=== PATIENT | male | born 1955 | race Caucasian/White ===

== ENCOUNTER 2016-06-20 17:17 | Emergency (ER) | payer OTHER ==
--- NOTE | ~2016-06-20 | CR106 ---
[facility] A Service of [facility] & [facility] RADIOLOGY TEXT RESULTS PATIENT: TWIN BELTRE LOCATION: CFTX : 55 UNIT #: [id number] AGE: [address]: Whit Garcia APRN SEX: M ORDER DR: [id number] [facility] [address] [place], [place] [address] [id number] E MR#: [id number] Acc #: [id number] NAME: TWIN BELTRE : 1955 SEX: M STUDY DATE/TIME: 06/20/2016 17:22 UNIT: TX ROOM: STUDY DESCRIPTION: CR Femur 2 Views Lt Attending Physician: Whit Garcia A.P.R.N. Ordering Physician: Ed Doctor [id number] [facility] Primary Care Physician: Rafael Camara Jr., M.D. MEDICAL IMAGING REPORT This report is preliminary unless electronic signature is present EXAM Left femur series, 06/20/2016 HISTORY Fell out of bed today. Pain, bruises mid femur. Mid femur radiating up and down leg pain. FINDINGS AP and lateral views of the left femur are presented. Poor quality study. Clothing artifacts overlie relevant anatomy. Visualized bony pelvis intact. Teww-vm-ustwmzhf narrowing mid to inferior left hip joint. The left femur is intact without evidence of fracture. Mild narrowing medial left knee joint compartment. No indication of joint effusion. No traumatic appearing soft tissue abnormality. Dictated by... Rafael Barry M.D. THIS IS AN ELECTRONICALLY VERIFIED REPORT Rafael Barry M.D. at 06/21/2016 2:18 PM ELI/mario alberto TD: 06/21/2016 09:56 JOB #: [id number] MEDICAL IMAGING REPORT Page 1 of 1 COPY
--- NOTE | ~2016-06-20 | CR150 ---
[facility] A Service of [facility] & [facility] RADIOLOGY TEXT RESULTS PATIENT: TWIN BELTRE LOCATION: CFTX : 55 UNIT #: [id number] AGE: [address]: Whit Garcia APRN SEX: M ORDER DR: [id number] [facility] [address] [place], [place] [address] [id number] E MR#: [id number] Acc #: [id number] NAME: TWIN BELTRE : 1955 SEX: M STUDY DATE/TIME: 06/20/2016 17:21 UNIT: [facility] ROOM: STUDY DESCRIPTION: CR Hip Min 2 Views Lt Attending Physician: Whit Garcia A.P.R.N. Ordering Physician: Ed Mike Ha M.D. Primary Care Physician: Rafael Camara Jr., M.D. MEDICAL IMAGING REPORT This report is preliminary unless electronic signature is present EXAM Left hip series 06/20/2016 HISTORY Trauma today, fell out of bed. Pain, bruises mid femur. FINDINGS AP radiograph of pelvis presented with frog-leg view left hip. Bony ring of pelvis is intact. Kmju-ko-wahliyya narrowing of the lzz-re-bugrugbl hip joints bilaterally. The visualized proximal femurs are intact bilaterally with no evidence of fracture. The periarticular soft tissues are unremarkable. Visualized bowel gas pattern normal. Dictated by... Rafael Barry M.D. THIS IS AN ELECTRONICALLY VERIFIED REPORT Rafael Barry M.D. at 06/21/2016 2:18 PM ELI/mona TD: 06/21/2016 10:04 JOB #: [id number] MEDICAL IMAGING REPORT Page 1 of 1 COPY
[~2016-06-20 17:17] MED LIST: ALDACTONE25 MG PO; AMIODARONE HCL100 MG PO; ASPIRIN PO; ASPIRIN81 M2 PO; BENTYL10 MG PO; BUMEX1 MG PO; COUMADIN2.5 MG PO; DIGOX0.125 MG PO; IBUPROFEN PO; METOPROLOL TAR25 MG PO; MULTIVITAMIN1 UDCAP PO; NICOTINE PATCH1 EACH TD; NO MEDICATIONS; ZESTRIL5 MG PO
== END 2016-06-20 18:26 | disposition home or self-care (01) ==
LOC: CFTX 17:17
DX: S70.12XA Contusion of left thigh, initial encounter (principal); F17.210 Nicotine dependence, cigarettes, uncomplicated; W06.XXXA Fall from bed, initial encounter; Y92.009 Unspecified place in unspecified non-institutional (private) residence as the place of occurrence of the external cause; I11.0 Hypertensive heart disease with heart failure; I50.9 Heart failure, unspecified
CPT/HCPCS: 73502; 73552; 99284

== ENCOUNTER 2016-12-06 16:17 | Inpatient (IN) | payer OTHER ==
[~2016-12-06] VITALS: Ht 182.9 cm; Wt 67.4 kg
--- NOTE | ~2016-12-06 | DS ---
Unit #: [id number] #: [id number] Patient: JORJE HOLDER [id number] [address] [address] [id number] I MR#: [id number] NAME: JORJE HOLDER ROOM: 331 Age: 61 Sex: M Admission Date: 12/06/2016 : 1955 Discharge Date: 12/11/2016 Attending Physician: Malinda Luna M.D. Primary Care Physician: Lloyd Holder M.D. DISCHARGE SUMMARY FINAL DIAGNOSES 1. Acute systolic congestive heart failure with left ventricular ejection fraction of less than 10%. 2. Right ventricular function decreased. 3. Known supraventricular tachycardia. 4. Paroxysmal atrial fibrillation. 5. History of coronary artery disease with a history of coronary artery bypass grafting. 6. Alcoholic hepatitis. 7. Chronic obstructive pulmonary disease. 8. Possible pneumonia. 9. Hypokalemia, which is resolved. 10. Alcohol abuse. 11. Noncompliance. 12. Renal insufficiency. DISCHARGE MEDICATIONS Nebulizer treatment at home, prednisone tapering dose, Entresto one tablet b.i.d., mag oxide 400 mg b.i.d., Lopressor 25 mg b.i.d., furosemide 20 mg b.i.d., aspirin 81 mg daily, spironolactone 25 mg daily, folic acid 1 mg daily, thiamine 100 mg daily, Augmentin 875 mg b.i.d. for 3 days. DIAGNOSTIC STUDIES LABORATORY RESULTS: Upon discharge, BMP shows sodium 136, potassium 3.7, chloride 96, BUN 26, creatinine 1.3, GFR 58.9, and calcium 9.3. CBC shows WBC 6.2, hemoglobin 13.7, hematocrit 41.7, platelet count of 177. RPR is nonreactive. TSH 2.81 in normal range. Blood cultures x2, no growth. BNP on admission 3621. Lactic acid 1.9. IMAGING STUDIES: Chest x-ray which was most recent was done on 12/08/2016 showed no significant change from 12/06/2016, persistent left basilar consolidation with small left pleural effusion. CONSULTATION DURING HOSPITALIZATION 1. Dr. Shaw from Cardiology Services. 2. Admitting physician, Dr. Bubba Miller. 3. Discharging physician, Dr. Malinda Luna. HOSPITAL COURSE Mr. Jorje Holder is a 61-year-old male, who was admitted with shortness of breath, with cough and increasing lower extremity swelling. The patient was admitted by Dr. Miller. The patient was diagnosed with acute exacerbation of congestive heart failure and alcohol abuse and possible Unit #: [id number] #: [id number] Patient: JORJE HOLDER pneumonia. The patient has been receiving IV Zosyn from beginning of the stay. He would complete a course with Augmentin for 3 more days. The patient may need to repeat chest x-ray, PA and lateral, in 6 weeks. The patient's prednisone is being tapered and is going to be on a small dose of prednisone till off. Dr. Hilton was consulted for ischemic cardiomyopathy. The patient was on dobutamine in the hospital and IV diuresis. He is doing better at this time. The patient's medication has been adjusted as per key operator. The patient will need a LifeVest that is being arranged. The patient will follow up with key operator as an outpatient. The patient does have history of alcohol abuse. The patient was started on CIWA protocol and is doing well at this time. We will continue thiamine and folic acid. DISCHARGE PHYSICAL EXAMINATION VITAL SIGNS: Blood pressure is 116/97, heart rate is 70, respiratory rate is 18. CHEST: Fair air entry. Decreased at the bases. CVS: S1, S2 positive. Regular rhythm. ABDOMEN: Soft. EXTREMITIES: Edema is present, but it is improved. DISCHARGE INSTRUCTIONS 1. The patient will be discharged home in stable condition. 2. Follow up with primary care provider in 1 week. 3. Follow up with Dr. Shaw on 01/02/2017 at 1 p.m. 4. Congestive heart failure education. 5. Alcohol cessation counseling done. Dictated by... Regulo Ruff/maria guadalupe TD: 12/14/2016 16:16 JOB #: [id number] DISCHARGE SUMMARY Page 1 of 1 X Malinda Luna MD DISCHARGE SUMMARY
--- NOTE | ~2016-12-06 | HP ---
Unit #: [id number] #: [id number] Patient: TWIN HOLDER [id number] [facility]. [place], [place] [address] [id number] I MR#: [id number] NAME: TWIN HOLDER ROOM: 17069 Age: 61 Sex: M Admission Date: 12/06/2016 : 1955 Attending Physician: Malinda Luna M.D. Primary Care Physician: Lloyd Holder M.D. HISTORY AND PHYSICAL ADMISSION DIAGNOSES 1. Acute exacerbation of congestive heart failure. 2. Alcohol abuse. 3. History of coronary artery disease. 4. Chronic obstructive pulmonary disease. 5. Hypertension. 6. Continued tobacco use. HISTORY OF PRESENT ILLNESS Mr. Holder is a 61-year-old gentleman, patient of Dr. Holder, who comes to the emergency room with the complaints of increasing shortness of air and dyspnea, along with cough and increasing lower extremity swelling over the last several days. He denies any fever or chills and denies any chest pain, headache, dizziness, syncope, nausea, vomiting, diarrhea, or abdominal pain. He admits daily drinking with bourbon, and he continues to smoke and has been an active smoker all his adult life. So a 12-point review of systems on this patient basically is negative except as above. PAST MEDICAL HISTORY 1. Coronary artery disease. 2. COPD. 3. Atrial flutter. 4. Alcoholic hepatitis. 5. Acute renal failure. PAST SURGICAL HISTORY 1. CABG. 2. Back surgery. HOME MEDICATIONS I do not have in front of me, but these will be clarified with the pharmacy, and patient will be restarted accordingly. ALLERGIES No known drug allergies. SOCIAL HISTORY He is an active smoker and drinks on a daily basis, mainly bourbon. Denies any illicit drug use. FAMILY HISTORY Unremarkable. PHYSICAL EXAMINATION Unit #: [id number] #: [id number] Patient: TWIN HOLDER GENERAL: Patient is a 61-year-old gentleman in no acute distress. VITAL SIGNS: Blood pressure 144/113, heart rate 103, respirations 18, temperature 98.9. HEENT: Head is atraumatic. Pupils equal, round, and reactive to light and accommodation. Extraocular muscles intact. Oropharynx clear. NECK: Supple. No mass. No JVD. No bruits. CHEST: Diminished bilaterally with mild expiratory wheezing. CARDIOVASCULAR: S1 and S2. No murmurs. ABDOMEN: Soft, obese, and distended. Bowel sounds are diminished. LOWER EXTREMITIES: With 2 to 3+ pitting edema. NEUROLOGIC: Without any focal deficits. Alert, oriented, and answering questions appropriately. DIAGNOSTIC STUDIES LABORATORY: Chemistry significant for BNP of 3600, direct bilirubin 0.8, total bilirubin 2.3, indirect bilirubin 1.7, alkaline phosphatase 139, lactic acid 1.9. Coagulation panel: PT 15.6, INR 1.4. Set of cardiac enzymes negative. Hemoglobin unremarkable. ASSESSMENT AND PLAN 1. Acute exacerbation of congestive heart failure (1) on IV Lasix. Cardiology to see. Monitor closely on telemetry bed. 2. Alcohol abuse. Started on alcohol withdrawal protocol. Will start on folate, thiamine, and p.r.n. Ativan. Counseled on the importance of quitting alcohol habits. 3. Tobacco abuse. Again, counseled on the importance of quitting tobacco. 4. Chronic obstructive pulmonary disease, at baseline, stable. 5. History of coronary artery disease, status post coronary artery bypass grafting. Resume home medications. Cardiology to follow. 6. Hypertension. Continue home medications. 7. Gastrointestinal and deep venous thrombosis prophylaxis with proton pump inhibitor and Lovenox. 1. Dictated by Regulo Porter/wally TD: 12/06/2016 20:31 JOB #: [id number] HISTORY AND PHYSICAL Page 1 of 1 X Bubba Miller MD X HISTORY AND PHYSICAL
--- NOTE | ~2016-12-06 | EKG ---
PATIENT: TWIN BELTRE UNIT #: [id number] Ventricular Rate: 78 BPM Atrial Rate: 78 BPM P-R Interval: 166 ms QRS Duration: 112 ms Q-T Interval: 442 ms QTC Calculation(Bezet): 503 ms P Columbia: 13 degrees Calculated R Columbia: 47 degrees Calculated T Columbia: 36 degrees Diagnosis Line: Normal sinus rhythm Diagnosis Line: Possible Left atrial enlargement Diagnosis Line: Cannot rule out Anterior infarct , age Diagnosis Line: undetermined Diagnosis Line: Prolonged QT Diagnosis Line: Abnormal ECG Diagnosis Line: When compared with ECG of 06-DEC-2016 16:31, Diagnosis Line: (unconfirmed) Diagnosis Line: No significant change was found Diagnosis Line: Confirmed by TEO BIANCHI MD ([id number]) on 12/13/2016 Diagnosis Line: 7:34:35 AM INTERPRETING MD: ARIAS MALAGON
--- NOTE | ~2016-12-06 | CO ---
Unit #: [id number] #: [id number] Patient: TWIN BELTRE [id number] [facility]. [place], [place] [address] [id number] I MR#: [id number] NAME: TWIN BELTRE ROOM: 331 Age: 61 Sex: M Admission Date: 12/06/2016 : 1955 Attending Physician: Malinda Luna M.D. Primary Care Physician: Lloyd Holder M.D. Consultation Date: 12/07/2016 CONSULTATION REPORT REASON FOR CONSULTATION Management of his ischemic cardiomyopathy. HISTORY OF PRESENT ILLNESS This is a 61-year-old white male whom we had been seeing up to last year. He has ischemic cardiomyopathy. He has had a history of a CABG. A few years back, he had been coming to our office like as I mentioned was about a year ago. He was in atrial flutter last year and required DC cardioversion, which was successful. He had an EF at one time as low as 10% and his last ejection fraction was checked in 09/2015, it increased of 40% to 45%. He did at that time, also was wearing a LifeVest until he was scheduled for a defibrillator. Since that time, the patient's from pancreatic cancer, he has been very depressed, he increased his drinking. He admits to be drinking three pints in a week, but now it is reported he drinks a pint a day. He smokes about a pack of cigarettes a day. He has not had been taking hardly any of his medications except recently went to Dr. Holder and got 12.5 of metoprolol b.i.d. and spironolactone. He knew his congestive heart failure was worsening, he has increased lower extremity edema, increased shortness of breath. He is having some substernal chest tightness, but usually when he is having exertion with shortness of breath or it also occurs when he is coughing, he said sometimes it will be midepigastric discomfort. The patient was also put on CIWA protocol. His initial labs, his creatinine was 1.4, potassium 4, BNP was 3621. His TSH was okay. His initial cardiac enzymes were negative. He was initiated on IV Lasix. His EKG did not show anything acute. His chest x-ray showed a left bibasilar atelectasis or infiltrate and small left pleural effusion. Cardiology has been asked to assist with evaluation and management. PAST MEDICAL HISTORY 1. Coronary artery disease with history of bypass. 2. COPD. 3. History of atrial flutter with DC cardioversion back in 05/2015. 4. Chronic systolic congestive heart failure. His latest echo done in 09/2015 shows his LVEF increased to 40% to 45%. 5. History of coronary artery disease, previous CABG. 6. COPD. 7. Hypertension. 8. Continued nicotine abuse. 9. Continue alcohol abuse. 10. History of chronic kidney disease. PAST SURGICAL HISTORY CABG back in 2008, back surgery. Unit #: [id number] #: [id number] Patient: TWIN BELTRE HOME MEDICATIONS Metoprolol 12.5 mg p.o. b.i.d., spironolactone 25 mg 1 tablet p.o. daily. ALLERGIES No known drug allergies. SOCIAL HISTORY The patient lives with his stepdaughter daughter. He has been drinking about a pint of hard liquor a day and continues to smoke about 3/4 of a pack a day. REVIEW OF SYSTEMS See details in HPI. PHYSICAL EXAMINATION GENERAL: He is a 61-year-old white male, in no acute respiratory distress. He is somewhat lethargic . VITAL SIGNS: Blood pressure was 129/93, now he is 137/104, respirations 20, heart rate is 85, temperature is 98.4, O2 saturations 100% on 2 L. NECK: Trachea midline. No thyromegaly or lymphadenopathy. He has 4+ JVD. LUNGS: Fine rales in bases. ABDOMEN: Distended, slightly firm, nontender. EXTREMITIES: Pedal pulses are very faint. 2+ pedal edema. DIAGNOSTIC STUDIES LABORATORY RESULTS: ABGs on admission pH is 7.467, pCO2 is 24.4, pO2 is 26.6, O2 saturations 95.9, that is on 2 L. Glucose is 85, BUN 18, creatinine 1.4, eGFR is 53.9, sodium 138, potassium 4.0, chloride 105, CO2 of 24. Calcium is 9.2, magnesium level is 1.9, albumin 3.5. Bilirubin total 2.5, AST 26, ALT 16, and alkaline phosphatase is 117. Lactic acid is 1.9. BNP yesterday was 3621. TSH is 2.81. Alcohol level is less than 5. Initial cardiac enzymes; CK-MB is 2.0 with troponin less than 0.05 and CK-MB is 2.1 with troponin less than 0.05. WBCs 7.7, hemoglobin 14.1, hematocrit 43.9, platelets is 170. Urinalysis; 0.2 urobilinogen. Blood cultures are pending. IMAGING STUDIES: Chest x-ray shows left basilar atelectasis infiltrate, small left pleural effusion not excluded, stable cardiomegaly. CARDIOVASCULAR STUDIES: EKG shows normal sinus rhythm, anterolateral Q waves, questionable age, nothing acute. IMPRESSION Acute on chronic systolic congestive heart failure. His last echo left ventricular ejection fraction was 40% to 45% with mild pulmonary artery hypertension with RVSP of 38 mmHg. I had the echo report when it was last done in 09/2015, it shows his left ventricular ejection fraction was about 40% to 45% at that time. We will have to do another echo to re-evaluate his left ventricular function and valves since he has been noncompliant with most of his cardiac medications and has also been drinking heavily. PLAN 1. Gently diurese with IV Lasix. Strict intake and output and daily weights. Monitor labs, especially BUN, creatinine, and electrolytes and supplement when needed. Unit #: [id number] #: [id number] Patient: TWIN BELTRE 2. Add lisinopril 5 mg p.o. b.i.d. that will also help his blood pressure but for his cardiomyopathy, add metoprolol 25 mg every 6 hours and we will make final recommendations before discharge. 3. Continue on aspirin. Also he is on daily DVT prophylaxis with Lovenox. 4. The patient is on the CIWA protocol except not during the IV fluids due to his acute on chronic systolic congestive heart failure. He is getting his vitamin, folic acid, and thiamine orally. Besides IV Lasix, he is on spironolactone. 5. On exam, there are no signs or symptoms of unstable angina. His cardiac enzymes are negative. EKG does not show anything acute. 6. Please reinforce CHF education to the patient. 7. Reinforce compliancy, the patient says he really wants to quit drinking and maintain on the proper medication. 8. Further recommendations pending per Dr. Shaw. Thank you very much for allowing us to assist in the care. Dictated by... Willy Avila/maria guadalupe TD: 12/08/2016 12:35 JOB #: [id number] [facility]: [facility] Page 1 of 1 X Josseline Cheung APRN X CONSULTATION REPORT
--- NOTE | ~2016-12-06 | CR72 ---
[facility] A Service of [facility] & [facility] RADIOLOGY TEXT RESULTS PATIENT: TWIN BELTRE LOCATION: C3A 331-01 : 55 UNIT #: [id number] AGE: [address]: Malinda Luna MD SEX: M ORDER DR: [id number] [facility] [address] [place], [place] [address] [id number] I MR#: [id number] Acc #: [id number] NAME: TWIN BELTRE : 1955 SEX: M STUDY DATE/TIME: 12/06/2016 17:19 UNIT: A U ROOM: [facility] STUDY DESCRIPTION: CR Chest Single View Portable Attending Physician: Malinda Luna M.D. Ordering Physician: Savana Rowland M.D. Primary Care Physician: Lloyd Holder M.D. MEDICAL IMAGING REPORT This report is preliminary unless electronic signature is present EXAM Portable chest, 12/06/2016. HISTORY 61-year-old male with shortness of air and chest pain for 1 week. COMPARISON Chest, 05/05/2015 FINDINGS Frontal chest demonstrates stable cardiomegaly. Mediastinum and pulmonary vasculature unremarkable. Left basilar atelectasis/infiltrate. Right lung clear. No pneumothorax. Median sternotomy wires. Trace left pleural effusion is not excluded. IMPRESSION 1. Left basilar atelectasis/infiltrate. Small left pleural effusion not excluded. 2. Stable cardiomegaly. 1. Dictated by... Barry Martinez M.D. THIS IS AN ELECTRONICALLY VERIFIED REPORT Barry Martinez M.D. at 12/07/2016 4:08 PM Ginger TD: 12/07/2016 08:47 JOB #: [id number] MEDICAL IMAGING REPORT Page 1 of 1 COPY
--- NOTE | ~2016-12-06 | EKG ---
PATIENT: TWIN BELTRE UNIT #: [id number] Ventricular Rate: 101 BPM Atrial Rate: 101 BPM P-R Interval: 154 ms QRS Duration: 106 ms Q-T Interval: 394 ms QTC Calculation(Bezet): 510 ms P Pfeifer: 58 degrees Calculated R Pfeifer: 68 degrees Calculated T Pfeifer: 84 degrees Diagnosis Line: Sinus tachycardia Diagnosis Line: Possible Left atrial enlargement Diagnosis Line: Nonspecific T wave abnormality Diagnosis Line: Abnormal ECG Diagnosis Line: When compared with ECG of 10-MAY-2015 09:40, Diagnosis Line: Criteria for Anterior infarct are no longer Diagnosis Line: Present Diagnosis Line: Criteria for Anterolateral infarct are no longer Diagnosis Line: Present Diagnosis Line: Nonspecific T wave abnormality now evident in Diagnosis Line: Lateral leads Diagnosis Line: Confirmed by KARTHIK ERICKSON MD ([id number]) on Diagnosis Line: 12/08/2016 10:50:51 AM INTERPRETING MD: DRE MALAGON
--- NOTE | ~2016-12-06 | CR63 ---
[facility] A Service of [facility] & [facility] RADIOLOGY TEXT RESULTS PATIENT: TWIN BELTRE LOCATION: [facility] : 55 UNIT #: [id number] AGE: [address]: Malinda Luna MD SEX: M ORDER DR: [id number] [facility] [address] [facility] [place], [place] [address] [id number] I MR#: [id number] Acc #: [id number] NAME: TWIN BELTRE : 1955 SEX: M STUDY DATE/TIME: 12/08/2016 17:10 UNIT: C3A PCU ROOM: [facility] STUDY DESCRIPTION: CR Chest 2 View Attending Physician: Malinda Luna M.D. Ordering Physician: Malinda Luna M.D. Primary Care Physician: Lloyd Holder M.D. MEDICAL IMAGING REPORT This report is preliminary unless electronic signature is present EXAMINATION PA and lateral chest. DATE 12/08/2016 HISTORY Cough and shortness of breath for 2 weeks. Congestive heart failure. Hypertension. COMPARISON AP portable chest, 12/06/2016. FINDINGS There is dense retrocardiac left basilar consolidation. Small left pleural effusion is present. Right lung is free of acute airspace disease. Benign calcified granulomatous changes are present within the right midlung and right hilum. Stable cardiac enlargement. Median sternotomy. No pneumothorax. IMPRESSION No significant change from 12/06/2016. Persistent left basilar consolidation with small left pleural effusion. Stable cardiomegaly. Dictated by... Aby Wong M.D. THIS IS AN ELECTRONICALLY VERIFIED REPORT Aby Wong M.D. at 12/09/2016 1:11 PM GENNARO/guicho TD: 12/09/2016 12:25 [facility] A Service of [facility] RADIOLOGY TEXT RESULTS PATIENT: TWIN BELTRE LOCATION: [facility] : 55 UNIT #: [id number] AGE: [address]: Malinda Luna MD SEX: M ORDER DR: JOB #: [id number] MEDICAL IMAGING REPORT Page 1 of 1 COPY
[2016-12-06 17:28] LABS: ARTERIAL BLD GAS O2 SATURATION 95.9 % (90.0-100.0); ARTERIAL BLOOD GAS CARBOXY HB 1.6 %sat (0.0-9.0); ARTERIAL BLOOD GAS HCO3 17.6 mmol/L; ARTERIAL BLOOD GAS MET HB 0.8 %sat (0.0-2.0); ARTERIAL BLOOD GAS PCO2 24.4 mmHg (35.0-45.0); ARTERIAL BLOOD GAS PO2 96.6 mmHg (80.0-100); ARTERIAL BLOOD GAS pH 7.467 (7.350-7.450)
[2016-12-06 17:29] LABS: ARTERIAL BLOOD GAS ALLEN TEST NORMAL; ARTERIAL DRAW? YES
[2016-12-06 17:30] LABS: ARTERIAL BLOOD GAS ART SITE LEFT RADIAL; ARTERIAL BLOOD GAS DELIVERY NASAL CANNULA
[2016-12-06 18:07] LABS: BASOPHIL# 0.1 X10e3 (0-0.3); BASOPHIL% 1.3 % (0-2.5); EOSINOPHIL% 0.4 % (0.0-7.0); HEMATOCRIT 45.6 % (38.0-50.0); HEMOGLOBIN 14.8 gm/dL (13.0-16.0); LYMPHOCYTE# 0.9 X10e3 (1.0-3.5); LYMPHOCYTE% 11.7 % (17.0-45.0); MEAN CELL VOLUME 91.6 FL (83-96); MEAN CORPUSCULAR HEMOGLOBIN 29.7 PG (28-34); MEAN CORPUSCULAR HGB CONC 32.5 g/dL (30-36); MEAN PLATELET VOLUME 8.8 FL (6.5-11.5); MONOCYTE# 0.5 X10e3 (0-1.0); MONOCYTE% 7.3 % (3.0-12.0); NEUTROPHIL% 79.3 % (40-75); PLATELET COUNT 179 X10e3 (140-420); RED BLOOD COUNT 4.98 X10e (3.90-5.60); RED CELL DISTRIBUTION WIDTH 18.6 % (11.0-15.5); WHITE BLOOD COUNT 7.5 X10e3 (4.0-10.5)
[2016-12-06 18:09] LABS: POC - CKMB 2.9 ng/mL (0.0-7.9); POC - TROPONIN <0.05 ng/mL (<=0.05)
[2016-12-06 18:22] LABS: DIFF IND NO
[2016-12-06 18:32] LABS: INR 1.4; PARTIAL THROMBOPLASTIN TIME 26.2 SECONDS (23.5-31.3); PROTHROMBIN TIME (PATIENT) 15.6 SECONDS (10.0-11.7)
[2016-12-06 18:35] LABS: ALBUMIN SERUM 3.9 g/dL (3.5-5.0); ALKALINE PHOSPHATASE 139 U/L (32-92); ALT (SGPT) 17 U/L (10-40); AST (SGOT) 27 U/L (10-42); BILIRUBIN, DIRECT 0.8 mg/dL (0.0-0.2); BILIRUBIN,INDIRECT 1.5 mg/dL (0.0-0.9); BILIRUBIN,TOTAL 2.3 mg/dL (0.2-2.0); BLOOD UREA NITROGEN 16 mg/dL (9-23); BUN/CREATININE RATIO 13.33; CALCIUM SERUM 9.3 mg/dL (8.4-10.2); CARBON DIOXIDE 22 mmol/L (22-31); CHLORIDE 105 mmol/L (100-111); CREATININE SERUM 1.2 mg/dL (0.6-1.4); GLOM FILT RATE Estimated 64.9 mL/min (>60); GLUCOSE FASTING 95 mg/dL (70-110); MAGNESIUM 1.9 mg/dL (1.6-3.0); POTASSIUM 3.9 mmol/L (3.5-5.1); PROTEIN TOTAL SERUM 7.6 g/dL (6.0-8.3); SODIUM 138 mmol/L (135-145)
[2016-12-06 18:37] LABS: ALCOHOL BLOOD <5 mg/dL (0)
[2016-12-06] MEDS ORDERED: TOPROL XL PO (19:50)
[2016-12-06] MEDS ORDERED: ALDACTONE25 MG PO (19:50)
[2016-12-06 19:59] LABS: POC - CKMB 2.1 ng/mL (0.0-7.9); POC - TROPONIN <0.05 ng/mL (<=0.05)
[2016-12-07 02:51] LABS: URINE SOURCE CLEAN CATCH
[2016-12-07 03:00] LABS: URINE APPEARANCE CLEAR; URINE BILIRUBIN NEG (NEG); URINE BLOOD NEG (NEG); URINE COLOR YELLOW; URINE GLUCOSE NEG (NEG); URINE KETONE NEG (NEG); URINE LEUKOCYTE ESTERASE NEG (NEG); URINE NITRATE NEG (NEG); URINE PROTEIN NEG (NEG); URINE SPECIFIC GRAVITY 1.008 (1.003-1.035); URINE UROBILINOGEN 0.2 MG/DL (NEG)
[2016-12-07 06:28] LABS: BASOPHIL# 0.1 X10e3 (0-0.3); BASOPHIL% 1.3 % (0-2.5); EOSINOPHIL# 0.1 X10e3 (0-0.7); EOSINOPHIL% 1.4 % (0.0-7.0); HEMATOCRIT 43.9 % (38.0-50.0); HEMOGLOBIN 14.1 gm/dL (13.0-16.0); LYMPHOCYTE# 0.9 X10e3 (1.0-3.5); LYMPHOCYTE% 12.3 % (17.0-45.0); MEAN CELL VOLUME 92.1 FL (83-96); MEAN CORPUSCULAR HEMOGLOBIN 29.5 PG (28-34); MEAN CORPUSCULAR HGB CONC 32.1 g/dL (30-36); MEAN PLATELET VOLUME 8.9 FL (6.5-11.5); MONOCYTE% 12.5 % (3.0-12.0); NEUTROPHIL# 5.6 X10e3 (1.5-7.1); NEUTROPHIL% 72.5 % (40-75); PLATELET COUNT 170 X10e3 (140-420); RED BLOOD COUNT 4.77 X10e (3.90-5.60); RED CELL DISTRIBUTION WIDTH 18.2 % (11.0-15.5); WHITE BLOOD COUNT 7.7 X10e3 (4.0-10.5)
[2016-12-07 06:44] LABS: DIFF IND NO
[2016-12-07 06:55] LABS: ALBUMIN SERUM 3.5 g/dL (3.5-5.0); BILIRUBIN,TOTAL 2.5 mg/dL (0.2-2.0); BUN/CREATININE RATIO 12.85; CALCIUM SERUM 9.2 mg/dL (8.4-10.2); CREATININE SERUM 1.4 mg/dL (0.6-1.4); GLOM FILT RATE Estimated 53.9 mL/min (>60); PROTEIN TOTAL SERUM 6.6 g/dL (6.0-8.3)
[2016-12-07 07:06] LABS: THYROID STIMULATING HORMONE 2.81 uIU/ml (0.34-5.60)
[2016-12-07 07:13] LABS: FREE THYROXIN (T4) 1.34 ng/dL (0.58-1.64)
[2016-12-08 05:48] LABS: HEMATOCRIT 41.6 % (38.0-50.0); HEMOGLOBIN 13.3 gm/dL (13.0-16.0); MEAN CELL VOLUME 91.4 FL (83-96); MEAN CORPUSCULAR HEMOGLOBIN 29.2 PG (28-34); MEAN CORPUSCULAR HGB CONC 31.9 g/dL (30-36); MEAN PLATELET VOLUME 8.7 FL (6.5-11.5); RED BLOOD COUNT 4.55 X10e (3.90-5.60); RED CELL DISTRIBUTION WIDTH 18.1 % (11.0-15.5); WHITE BLOOD COUNT 6.4 X10e3 (4.0-10.5)
[2016-12-08 07:34] LABS: BUN/CREATININE RATIO 13.33; CALCIUM SERUM 9.1 mg/dL (8.4-10.2); CREATININE SERUM 1.5 mg/dL (0.6-1.4); GLOM FILT RATE Estimated 49.6 mL/min (>60); POTASSIUM 3.4 mmol/L (3.5-5.1)
[2016-12-09 05:52] LABS: HEMATOCRIT 42.2 % (38.0-50.0); HEMOGLOBIN 13.7 gm/dL (13.0-16.0); MEAN CELL VOLUME 90.7 FL (83-96); MEAN CORPUSCULAR HEMOGLOBIN 29.5 PG (28-34); MEAN CORPUSCULAR HGB CONC 32.6 g/dL (30-36); MEAN PLATELET VOLUME 8.7 FL (6.5-11.5); RED BLOOD COUNT 4.65 X10e (3.90-5.60); RED CELL DISTRIBUTION WIDTH 18.2 % (11.0-15.5); WHITE BLOOD COUNT 7.3 X10e3 (4.0-10.5)
[2016-12-09 06:43] LABS: BUN/CREATININE RATIO 17.85; CALCIUM SERUM 9.1 mg/dL (8.4-10.2); CREATININE SERUM 1.4 mg/dL (0.6-1.4); GLOM FILT RATE Estimated 53.9 mL/min (>60); MAGNESIUM 1.9 mg/dL (1.6-3.0); POTASSIUM 3.8 mmol/L (3.5-5.1)
[2016-12-10 07:09] LABS: HEMATOCRIT 41.7 % (38.0-50.0); HEMOGLOBIN 13.7 gm/dL (13.0-16.0); MEAN CORPUSCULAR HEMOGLOBIN 29.6 PG (28-34); MEAN CORPUSCULAR HGB CONC 32.9 g/dL (30-36); MEAN PLATELET VOLUME 8.6 FL (6.5-11.5); RED BLOOD COUNT 4.63 X10e (3.90-5.60); RED CELL DISTRIBUTION WIDTH 18.2 % (11.0-15.5)
[2016-12-10 07:42] LABS: CALCIUM SERUM 9.3 mg/dL (8.4-10.2); CREATININE SERUM 1.3 mg/dL (0.6-1.4); GLOM FILT RATE Estimated 58.9 mL/min (>60); POTASSIUM 3.7 mmol/L (3.5-5.1)
[2016-12-11] MEDS ORDERED: COMBIVENT U/D3 ML INH (13:35)
[2016-12-11] MEDS ORDERED: ENTRESTO 24 MG1 EACH PO (13:35)
[2016-12-11] MEDS ORDERED: MAG-OX 400400 M1 PO (13:36)
[2016-12-11] MEDS ORDERED: METOPROLOL TAR25 MG PO (13:36)
[2016-12-11] MEDS ORDERED: ASPIRIN81 M2 PO (13:37)
[2016-12-11] MEDS ORDERED: LASIX20 MG PO (13:37)
[2016-12-11] MEDS ORDERED: KCL PO (13:37)
[2016-12-11] MEDS ORDERED: THIAMINE HCL100 M2 PO (13:38)
[2016-12-11] MEDS ORDERED: FOLIC ACID PO (13:38)
[2016-12-11] MEDS ORDERED: AUGMENTIN PO (13:39)
[2016-12-11] MEDS ORDERED: PREDNISONE PO (13:39)
== END 2016-12-11 15:31 | disposition home or self-care (01) | DRG 291 ==
LOC: CED 16:17 → C3A PCU 19:27 → CEDOF 19:27 → CED 20:17 → CEDOF 20:17 → C3A PCU 12-07 00:13 → CEDOF 12-07 00:13 → C3A PCU 12-07 00:13
PROVIDERS: Emergency Medicine; Internal Medicine Cardiovascular Disease; Nurse Practitioner; Physician Assistant Medical
PROC: B24BYZZ Ultrasonography of Heart with Aorta using Other Contrast (ICD-10-PCS; principal; 2016-12-07)
DX: I11.0 Hypertensive heart disease with heart failure (principal); J18.9 Pneumonia, unspecified organism; I47.2 Ventricular tachycardia; Z95.1 Presence of aortocoronary bypass graft; K70.10 Alcoholic hepatitis without ascites; I48.0 Paroxysmal atrial fibrillation; I13.0 Hypertensive heart and chronic kidney disease with heart failure and stage 1 through stage 4 chronic kidney disease, or unspecified chronic kidney disease; I50.23 Acute on chronic systolic (congestive) heart failure; J44.9 Chronic obstructive pulmonary disease, unspecified; F10.10 Alcohol abuse, uncomplicated; I25.10 Atherosclerotic heart disease of native coronary artery without angina pectoris; I25.5 Ischemic cardiomyopathy; F17.200 Nicotine dependence, unspecified, uncomplicated; E87.6 Hypokalemia; Z91.19 Patient's noncompliance with other medical treatment and regimen; N28.9 Disorder of kidney and ureter, unspecified
CPT/HCPCS: 36415; 36600; 71010; 71020; 80048; 80053; 80061; 80076; 81003; 82553; 82803; 83605; 83735; 83880; 84439; 84443; 84484; 85025; 85027; 85610; 85730; 86592; 87040; 93005; 93306; 94640; 94760; 99285; G0480; J1250; J1650; J1940; J2060; J2543; J2920; J3411; J3475; J7042